=== PATIENT | female | born 1960 | race Caucasian/White ===

== ENCOUNTER 2021-11-02 12:49 | Emergency (ER) | payer OTHER ==
--- NOTE | 2021-11-02 13:18 | ERPHSYRPT ---
- History of Present Illness Time Seen by Provider: 11/02/21 12:54 Source: patient Exam Limitations: no limitations Patient Subjective Stated Complaint: D-Dimer greater than 1900. States he [employer], Marco Resendez called her and told her to go to the ED. She had Covid at the end of May 2021. States that she has been SOB since that time that time and that her SOB had become worse in the past 2 days. Triage Nursing Assessment: Ambulated back to ED without difficulties. No SOB noted during assessment; speaking in full sentences. She is alert and oriented and answering questions appropriately. Patient did cough a few times during assessment and was noted to be holding her left upper rib area in a gaurding fashion when coughing; cough is non-productive. Physician History: 60 years old female sent in ER from urgent care with elevated D-dimers for CTA to rule out PE. Patient reports she had COVID-like symptoms since which is almost 10 days ago and gradually increasing shortness of breath with extensive coughing and subjective feeling of fever chills. Fever and chills is improved and now having right lateral chest pain with deep breathing, coughing and moving in a certain direction. Does have history of PE in the past. Patient has oxygen saturation of 98%, heart rate in 60s and 70s and EKG showing normal sinus rhythm. Shortness of breath is more with exertion and does report having similar symptoms when she had a COVID earlier this year. Timing/Duration: week(s), gradual onset, worse Activities at Onset: activity Severity of Dyspnea-Max: moderate Severity of Dyspnea-Current: mild Possible Cause: illness exposure Modifying Factors: Worsens With: coughing, deep breath, exertion Associated Symptoms: cough, chest pain/discomfort, wheezing, painful breathing, tightness Allergies/Adverse Reactions: No Known Drug Allergies Allergy (Verified 11/02/21 12:55) Home Medications: Albuterol Sulfate [Albuterol Sulfate Hfa] 2 puff PO Q4H PRN PRN 11/02/21 [Histo ry] Aspirin EC 81 mg [Ecotrin 81 mg] 1 tab PO DAILY 11/02/21 [History] Hx Tetanus, Diphtheria Vaccination/Date Given: Yes Hx Influenza Vaccination/Date Given: No Hx Pneumococcal Vaccination/Date Given: No Immunizations Up to Date: Yes Travel Risk - International Travel Have you traveled outside of the country in past 3 weeks: No - Coronavirus Screening Are you exhibiting any of the following symptoms?: Yes Symptoms: Shortness of Breath Close contact with a COVID-19 positive Pt in past 14-21 Days: No - Vaccine Status Have you recieved a Covid-19 vaccination: Yes 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 - Vaccination Dates Date of 2cond Vaccination (if applicable): 2020 - Review of Systems Constitutional: Fatigue, Weakness Eyes: No Symptoms Ears, Nose, & Throat: No Symptoms Respiratory: Cough, Dyspnea Cardiac: Chest Pain Abdominal/Gastrointestinal: No Symptoms Genitourinary Symptoms: No Symptoms Musculoskeletal: No Symptoms Skin: No Symptoms Neurological: No Symptoms Psychological: No Symptoms Endocrine: No Symptoms Hematologic/Lymphatic: No Symptoms Immunological/Allergic: No Symptoms - Past Medical History Pertinent Past Medical History: Yes Neurological History: No Pertinent History ENT History: No Pertinent History Cardiac History: Deep Vein Thrombosis Respiratory History: Pulmonary Embolism, Other Endocrine Medical History: No Pertinent History Musculoskeletal History: No Pertinent History GI Medical History: No Pertinent History History: No Pertinent History Psycho-Social History: No Pertinent History Female Reproductive Disorders: No Pertinent History Other Medical History: PE in 2017, Covid in 2021 - Past Surgical History Past Surgical History: Yes Neuro Surgical History: No Pertinent History Cardiac: No Pertinent History Respiratory: No Pertinent History Gastrointestinal: No Pertinent History Genitourinary: No Pertinent History Musculoskeletal: No Pertinent History Female Surgical History: Hysterectomy, Section - Social History Smoking Status: Former smoker Exposure to second hand smoke: No Drug Use: none Patient Lives Alone: Yes - Nursing Vital Signs Nursing Vital Signs: Initial Vital Signs Temperature 97.2 F 11/02/21 12:56 Pulse Rate 74 11/02/21 12:56 Respiratory Rate 22 11/02/21 12:56 Blood Pressure 158/115 11/02/21 12:56 O2 Sat by Pulse Oximetry 98 11/02/21 12:56 Pain Scale Pain Intensity 7 - Physical Exam General Appearance: no apparent distress, alert Eye Exam: PERRL/EOMI, eyes nml inspection Ears, Nose, Throat Exam: hearing grossly normal, normal ENT inspection, normal pharynx Neck Exam: normal inspection, non-tender, supple, full range of motion Respiratory Exam: normal breath sounds, airway intact, rhonchi Cardiovascular/Chest Exam: normal heart sounds, regular rate/rhythm Abdominal/Gastrointestinal Exam: soft, normal bowel sounds, No tenderness Extremity Exam: non-tender, normal range of motion Neurologic Exam: alert, oriented x 3, cooperative Skin Exam: normal color SpO2 Interpretation: normal SpO2: 98 O2 Delivery: Room Air - Course EKG Interpreted by Me: RATE ([id number]), Sinus Rhythm, NORMAL AXIS, NORMAL INTERVALS, NORMAL QRS Ordered Tests: Active Orders 24 hr Category Date Time Status CHEST WITH CONTRAST [CT] Stat Exams 11/02/21 13:12 Completed TROPONIN Q3H Lab 11/02/21 13:58 Completed TROPONIN Q3H Lab 11/02/21 16:15 Ordered TROPONIN Q3H Lab 11/02/21 19:15 Ordered TROPONIN Q3H Lab 11/02/21 22:15 Ordered TROPONIN Q3H Lab 11/03/21 01:15 Ordered Lab/Rad Data: Laboratory Results 11/02/21 Range/Units 13:58 Troponin I < 0.012 (0.000-0.034) ng/mL - Progress Progress: re-examined Air Movement: good Progress Note: 11/02/21 15:25 60-year-old is evaluated for shortness of breath with cough with recent COVID symptoms. She had elevated D-dimer and CTA is obtained which is negative. She has a negative troponin x1 in here and do not think she needs second troponin and EKG is normal sinus rhythm without any acute ischemic changes. I believe her symptoms are secondary to repeated coughing causing some muscle strain in the chest wall versus scar tissue from previous infections causing pain. Recommended supportive care and continue with inhaler and outpatient follow-up. Discussed signs symptoms of worsening needing return to ER which she seems understanding. Stable for discharge. Blood Culture(s) Obtained: No Antibiotics given: No Counseled pt/family regarding: lab results, diagnosis, need for follow-up, rad results - Departure Departure Disposition: Home Clinical Impression: Cough, Right-sided chest wall pain, Dyspnea Condition: Stable Critical Care Time: No Referrals: MARCO RESENDEZ NP [NON-STAFF PHY W/O PRIVILEGES] - Follow Up with PCP/3 days Instructions: Shortness of Breath (Dyspnea) (DC) Additional Instructions: Use inhaler as needed. Al-Anon as needed for pain. Follow-up with primary care for reevaluation. Return to ER for worsening cough/difficulty breathing etc.
--- NOTE | 2021-11-02 14:53 | XRAY ---
Indication: Pulmonary embolus. Multiple contiguous axial images obtained through the chest using 80 cc Isovue 370 contrast and PE protocol. Comparison: None Good opacification of the pulmonary arteries to include the lobar and segmental branches. No pulmonary embolus. Heart not enlarged. Aorta is normal in course and caliber. Small mediastinal and left hilar calcified nodes. No pathologic mediastinal/hilar lymphadenopathy. Lungs demonstrates mild bibasilar and lesser degree inferior right upper lobe subsegmental atelectasis/scarring. Small left lower lobe calcified granuloma. No suspicious pulmonary mass, infiltrate, or effusion. Bony thorax intact with minimal/mild degenerative changes throughout the spine. Limited upper abdomen unremarkable. Impression: 1. Negative pulmonary embolus. No acute cardiopulmonary abnormalities. 2. Incidental scattered subsegmental atelectasis/scarring, degenerative spondylosis, and old granulomatous disease.
[2021-11-02 15:28] VITALS: O2SAT 98
[2021-11-02 15:35] VITALS: BP 137/97; PULSE 68
== END 2021-11-02 15:37 | disposition home or self-care (01) ==
LOC: ED 12:49
DX: R05.9 Cough, unspecified (principal); R07.9 Chest pain, unspecified; R06.00 Dyspnea, unspecified; R79.1 Abnormal coagulation profile; Z86.711 Personal history of pulmonary embolism; Z86.16 Personal history of COVID-19
CPT/HCPCS: 36415; 71260; 84484; 99284